=== PATIENT | male | born 1995 | race Two or more races ===

== ENCOUNTER 2019-01-20 12:21 | Emergency (ER) | payer MEDICAID ==
[~2019-01-20] VITALS: Ht 165.1 cm; Wt 58.5 kg
[2019-01-20 12:26] VITALS: BP 125/72
== END 2019-01-20 13:41 | disposition home or self-care (01) ==
LOC: ER 12:21
DX: S62.002A Unspecified fracture of navicular [scaphoid] bone of left wrist, initial encounter for closed fracture (principal); S00.83XA Contusion of other part of head, initial encounter; F12.90 Cannabis use, unspecified, uncomplicated; W14.XXXA Fall from tree, initial encounter; Y93.89 Activity, other specified; Y99.8 Other external cause status; Y92.89 Other specified places as the place of occurrence of the external cause
CPT/HCPCS: 29125; 73130

== ENCOUNTER 2020-05-22 11:58 | Inpatient (IN) | payer MEDICAID ==
[~2020-05-22] VITALS: Ht 165.1 cm; Wt 62.8 kg
[2020-05-22] MEDS ORDERED: ACETAMINOPHEN 325 MG TAB PO ONE (12:30)
[2020-05-22 16:00] LABS: Eosinophils # (auto) 0 10 ^3/uL (0-0.8); Hemoglobin 15.8 g/dL (13.5-17.5)
[2020-05-22] MEDS ORDERED: SODIUM CHLORIDE 0.9% 1,000 ML IVB ONE (16:00)
[2020-05-22] MEDS ORDERED: AZITHROMYCIN 500MG/ 250ML 250 ML IV ONE (16:00)
[2020-05-22 16:02] LABS: Basophils # (auto) 0.1 10 ^3/uL (0-0.2); Basophils % (auto) 0.2 % (0.0-2.0); Hematocrit 46.8 % (41.0-53.0); Lymphocytes # (auto) 1.1 10 ^3/uL (0.4-5.4); Lymphocytes % (auto) 4.7 % (10.0-50.0); Mean Corpuscular Hemoglobin 27.6 pg (28.0-32.0); Mean Corpuscular Hgb Conc. 33.9 g/dL (32.0-36.0); Mean Corpuscular Volume 81.5 fL (80.0-100.0); Monocytes # (auto) 1.7 10 ^3/uL (0-1.3); Monocytes % (auto) 7.6 % (0.0-12.0); Neutrophils % (auto) 87.5 % (37.0-80.0); Platelet Count (auto) 512 10^3/uL (140-450); Red Blood Cells 5.74 10^6/uL (4.5-5.90); Red Cell Distribution Width 12.6 % (11.8-14.3); White Blood Cell 22.8 10^3/uL (4.4-10.8)
[2020-05-22 16:16] LABS: Albumin 3.3 g/dL (3.4-5.0); BUN/Creatinine Ratio 9.6; Calcium 9.5 mg/dL (8.5-10.1); Potassium 3.4 mmol/L (3.5-5.1)
[2020-05-22 16:19] LABS: Bilirubin, Total 1.2 mg/dL (0.2-1.0); Total Protein 8.6 g/dL (6.4-8.2)
[2020-05-22 16:24] LABS: Lactic Acid w/Reflex 2.1 mmol/L (0.4-2.0)
[2020-05-22] MEDS ORDERED: NITROGLYCERIN 0.4 MG SL TAB SL PRN ×2 (16:45→18:45)
[2020-05-22] MEDS ORDERED: MORPHINE SULF INJ 2 MG/ML SYRINGE 1ML IV PRN ×2 (16:45→18:45)
[2020-05-22 16:56] LABS: INR 1.21 (0.9-1.15); Partial Thromboplastin Time 31.7 sec (23.0-31.2)
[2020-05-22] MEDS ORDERED: DOCUSATE SOD 100 MG CAP PO PRN (18:45)
[2020-05-22] MEDS ORDERED: LACTATED RINGER'S 2,000 ML IV ONE (18:45)
[2020-05-22] MEDS ORDERED: ALUM & MAG HYDROX-SIMETH LIQ(MAALOX) 30 ML PO PRN (18:45)
[2020-05-22] MEDS ORDERED: cefTRIAXone 1GM/50ML D5W 50 ML IV ONE ×2 (18:45→21:00)
[2020-05-22] MEDS: SODIUM CHLORIDE 0.9% 1,000 ML IV SCH (18:45)
[2020-05-22] MEDS ORDERED: THIAMINE 100mg/ml INJ (200mg/2ml VIAL) IV ONE (18:45)
[2020-05-22] MEDS ORDERED: CLINDAMYCIN 600MG IV 50 ML IV ONE (20:00)
[2020-05-22] MEDS ORDERED: POTASSIUM CHL 20 Meq TABLET PO SCH (22:00)
[2020-05-22 23:15] VITALS: BP 120/65
[2020-05-23] MEDS: ACETAMINOPHEN 325 MG TAB PO PRN ×3 (00:55→21:13)
[2020-05-23] MEDS: SODIUM CHLORIDE 0.9% 1,000 ML IV SCH ×2 (03:10→13:38)
[2020-05-23 05:00] VITALS: BP 127/67
[2020-05-23] MEDS: CLINDAMYCIN 600MG IV 50 ML IV SCH ×2 (05:52→13:38)
[2020-05-23 08:38] LABS: Urine Bacteria NONE SEEN /hpf (None Seen); Urine Blood TRACE /uL (Negative); Urine Mucus FEW (None Seen); Urine Specific Gravity 1.019 (1.001-1.035); Urine WBC 5 /hpf (0 - 3)
[2020-05-23 08:56] LABS: Alcohol, Urine < 3.0 mg/dL (0-10); Amphetamine Screen, Urine NEGATIVE (NEGATIVE); Benzodiazephine Screen, Urine NEGATIVE (NEGATIVE); Cannabinoid Screen, Urine POSITIVE (NEGATIVE)
[2020-05-23 09:00] VITALS: BP 123/68
[2020-05-23 09:03] LABS: Barbiturate Scree,Urine NEGATIVE (NEGATIVE); Cocaine Screen, Urine NEGATIVE (NEGATIVE); Opiate Scree,Urine NEGATIVE (NEGATIVE); Phencyclidine Screen, Urine NEGATIVE (NEGATIVE)
[2020-05-23] MEDS: POTASSIUM CHL 20 Meq TABLET PO SCH (10:00)
[2020-05-23] MEDS ORDERED: LIDOCAINE 2%HCL (LOCAL ANESTH.) INJ 20ML MDV ONE ×2 (10:30→12:01)
[2020-05-23] MEDS ORDERED: fentaNYL CITRATE 100 MCG/2 ML VL ONE ×2 (11:09→12:03)
[2020-05-23] MEDS ORDERED: MIDAZOLAM HCL 1MG/1ML-2 ML VIAL ONE (11:09)
[2020-05-23 13:00] VITALS: BP 122/66
[2020-05-23] MEDS: MORPHINE SULF INJ 2 MG/ML SYRINGE 1ML IV PRN ×2 (13:55→20:04)
[2020-05-23 16:49] VITALS: BP 126/71
[2020-05-23] MEDS ORDERED: VANCOMYCIN PER PHARMACY 0 MG IV SCH (18:00)
[2020-05-23] MEDS ORDERED: VANCOMYCIN 1GM/250ML 250 ML IV SCH (19:00)
[2020-05-23] MEDS: VANCOMYCIN 1GM/250ML 250 ML IV SCH (20:03)
[2020-05-23] MEDS ORDERED: CEFTRIAXONE SODIUM 2 GM in D5W 5% 50 ML IV SCH (21:00)
[2020-05-23] MEDS: THIAMINE 100mg/ml INJ (200mg/2ml VIAL) IV SCH (21:32)
[2020-05-23] MEDS: PIPERACILLIN-TAZOB 3.375GM 100 ML IV SCH (21:33)
[2020-05-23 22:33] VITALS: BP 117/70
[2020-05-24] MEDS: MORPHINE SULF INJ 2 MG/ML SYRINGE 1ML IV PRN ×3 (04:39→21:29)
[2020-05-24] MEDS: ACETAMINOPHEN 325 MG TAB PO PRN ×2 (05:10→17:23)
[2020-05-24 05:24] VITALS: BP 119/68
[2020-05-24 05:49] LABS: Basophils # (auto) 0.1 10 ^3/uL (0-0.2); Basophils % (auto) 0.5 % (0.0-2.0); Eosinophils # (auto) 0.3 10 ^3/uL (0-0.8); Eosinophils % (auto) 1.9 % (0.0-7.0); Hematocrit 34.4 % (41.0-53.0); Hemoglobin 11.4 g/dL (13.5-17.5); Lymphocytes # (auto) 1.2 10 ^3/uL (0.4-5.4); Lymphocytes % (auto) 7.8 % (10.0-50.0); Mean Corpuscular Hemoglobin 27.1 pg (28.0-32.0); Mean Corpuscular Hgb Conc. 33.3 g/dL (32.0-36.0); Mean Corpuscular Volume 81.5 fL (80.0-100.0); Monocytes # (auto) 1.4 10 ^3/uL (0-1.3); Neutrophils # (auto) 12.5 10 ^3/uL (1.6-8.6); Neutrophils % (auto) 80.8 % (37.0-80.0); Platelet Count (auto) 373 10^3/uL (140-450); Red Blood Cells 4.22 10^6/uL (4.5-5.90); White Blood Cell 15.4 10^3/uL (4.4-10.8)
[2020-05-24] MEDS: SODIUM CHLORIDE 0.9% 1,000 ML IV SCH ×2 (06:00→10:45)
[2020-05-24] MEDS: PIPERACILLIN-TAZOB 3.375GM 100 ML IV SCH ×3 (06:00→21:29)
[2020-05-24 06:12] LABS: Potassium 3.3 mmol/L (3.5-5.1)
[2020-05-24 06:18] LABS: Albumin 2.1 g/dL (3.4-5.0); BUN/Creatinine Ratio 10.8; Bilirubin, Total 0.4 mg/dL (0.2-1.0); Calcium 8.4 mg/dL (8.5-10.1); Total Protein 6.2 g/dL (6.4-8.2)
[2020-05-24] MEDS: VANCOMYCIN 1GM/250ML 250 ML IV SCH ×2 (08:00→20:05)
[2020-05-24 09:00] VITALS: BP 129/72
[2020-05-24] MEDS: POTASSIUM CHL 20 Meq TABLET PO SCH (10:07)
[2020-05-24] MEDS ORDERED: POTASSIUM CHL 20 Meq TABLET PO ONE (12:15)
[2020-05-24 13:00] VITALS: BP 137/80
[2020-05-24 17:00] VITALS: BP 124/72
[2020-05-24] MEDS: THIAMINE 100mg/ml INJ (200mg/2ml VIAL) IV SCH (21:29)
[2020-05-24 22:00] VITALS: BP 117/78
[2020-05-24] MEDS: HYDROcodone-ACET 5/325MG TAB PO PRN (23:11)
[2020-05-25 05:00] VITALS: BP 123/75
[2020-05-25] MEDS: SODIUM CHLORIDE 0.9% 1,000 ML IV SCH ×3 (05:13→16:45)
[2020-05-25] MEDS: MORPHINE SULF INJ 2 MG/ML SYRINGE 1ML IV PRN ×2 (05:14→23:27)
[2020-05-25] MEDS: PIPERACILLIN-TAZOB 3.375GM 100 ML IV SCH ×3 (05:29→22:00)
[2020-05-25 07:08] LABS: Basophils # (auto) 0 10 ^3/uL (0-0.2); Basophils % (auto) 0.2 % (0.0-2.0); Eosinophils # (auto) 0.3 10 ^3/uL (0-0.8); Eosinophils % (auto) 2.5 % (0.0-7.0); Hemoglobin 12.1 g/dL (13.5-17.5); Lymphocytes # (auto) 1.4 10 ^3/uL (0.4-5.4); Lymphocytes % (auto) 10.6 % (10.0-50.0); Mean Corpuscular Hemoglobin 27.5 pg (28.0-32.0); Mean Corpuscular Hgb Conc. 33.5 g/dL (32.0-36.0); Mean Corpuscular Volume 82.2 fL (80.0-100.0); Monocytes # (auto) 1.4 10 ^3/uL (0-1.3); Monocytes % (auto) 10.7 % (0.0-12.0); Neutrophils # (auto) 10.2 10 ^3/uL (1.6-8.6); Platelet Count (auto) 427 10^3/uL (140-450); Red Blood Cells 4.38 10^6/uL (4.5-5.90); Red Cell Distribution Width 13.2 % (11.8-14.3); White Blood Cell 13.4 10^3/uL (4.4-10.8)
[2020-05-25 07:21] LABS: BUN/Creatinine Ratio 8.8; Calcium 8.4 mg/dL (8.5-10.1); Potassium 3.6 mmol/L (3.5-5.1)
[2020-05-25 07:24] LABS: Bilirubin, Total 0.3 mg/dL (0.2-1.0); Total Protein 6.4 g/dL (6.4-8.2)
[2020-05-25 08:00] VITALS: BP 134/82
[2020-05-25] MEDS: VANCOMYCIN 1GM/250ML 250 ML IV SCH ×2 (08:25→17:00)
[2020-05-25] MEDS: POTASSIUM CHL 20 Meq TABLET PO SCH (10:24)
[2020-05-25] MEDS: HYDROcodone-ACET 5/325MG TAB PO PRN (11:23)
[2020-05-25 13:00] VITALS: BP 134/70
[2020-05-25 17:09] VITALS: BP 121/71
[2020-05-25] MEDS: ACETAMINOPHEN 325 MG TAB PO PRN (19:34)
[2020-05-25] MEDS: THIAMINE 100mg/ml INJ (200mg/2ml VIAL) IV SCH (21:20)
[2020-05-25 22:00] VITALS: BP 128/65
[2020-05-26] MEDS: VANCOMYCIN 1GM/250ML 250 ML IV SCH ×4 (01:00→16:41)
[2020-05-26] MEDS: SODIUM CHLORIDE 0.9% 1,000 ML IV SCH ×2 (02:45→22:45)
[2020-05-26] MEDS: ACETAMINOPHEN 325 MG TAB PO PRN ×3 (04:24→21:11)
[2020-05-26 05:00] VITALS: BP 127/67
[2020-05-26 05:46] LABS: Basophils # (auto) 0.1 10 ^3/uL (0-0.2); Basophils % (auto) 0.5 % (0.0-2.0); Eosinophils # (auto) 0.3 10 ^3/uL (0-0.8); Monocytes # (auto) 1.8 10 ^3/uL (0-1.3); Monocytes % (auto) 13.4 % (0.0-12.0); White Blood Cell 13.3 10^3/uL (4.4-10.8)
[2020-05-26 05:48] LABS: Eosinophils % (auto) 1.9 % (0.0-7.0); Hematocrit 37.6 % (41.0-53.0); Hemoglobin 12.5 g/dL (13.5-17.5); Lymphocytes # (auto) 1.9 10 ^3/uL (0.4-5.4); Lymphocytes % (auto) 14.2 % (10.0-50.0); Mean Corpuscular Hemoglobin 27.2 pg (28.0-32.0); Mean Corpuscular Hgb Conc. 33.2 g/dL (32.0-36.0); Neutrophils # (auto) 9.3 10 ^3/uL (1.6-8.6); Platelet Count (auto) 518 10^3/uL (140-450); Red Blood Cells 4.59 10^6/uL (4.5-5.90); Red Cell Distribution Width 13.3 % (11.8-14.3)
[2020-05-26] MEDS: PIPERACILLIN-TAZOB 3.375GM 100 ML IV SCH ×3 (06:00→22:00)
[2020-05-26 08:30] VITALS: BP 129/68
[2020-05-26] MEDS: POTASSIUM CHL 20 Meq TABLET PO SCH (11:04)
[2020-05-26] MEDS: ONDANSETRON HCL 4 MG/2 ML VIAL IV PRN (11:37)
[2020-05-26] MEDS: MORPHINE SULF INJ 2 MG/ML SYRINGE 1ML IV PRN ×2 (11:37→21:11)
[2020-05-26 13:05] VITALS: BP 136/71
[2020-05-26 17:00] VITALS: BP 118/64
[2020-05-26] MEDS: THIAMINE 100mg/ml INJ (200mg/2ml VIAL) IV SCH (20:54)
[2020-05-26 21:00] VITALS: BP 128/62
[2020-05-27] MEDS: VANCOMYCIN 1GM/250ML 250 ML IV SCH ×4 (01:00→20:50)
[2020-05-27] MEDS: MORPHINE SULF INJ 2 MG/ML SYRINGE 1ML IV PRN ×4 (01:05→23:41)
[2020-05-27 05:00] VITALS: BP 116/66
[2020-05-27] MEDS: PIPERACILLIN-TAZOB 3.375GM 100 ML IV SCH ×3 (05:54→22:24)
[2020-05-27 06:12] LABS: Basophils # (auto) 0.1 10 ^3/uL (0-0.2); Basophils % (auto) 0.7 % (0.0-2.0); Eosinophils # (auto) 0.3 10 ^3/uL (0-0.8); Eosinophils % (auto) 1.9 % (0.0-7.0); Neutrophils # (auto) 12.3 10 ^3/uL (1.6-8.6)
[2020-05-27 06:14] LABS: Hematocrit 38.3 % (41.0-53.0); Hemoglobin 12.8 g/dL (13.5-17.5); Lymphocytes # (auto) 2.1 10 ^3/uL (0.4-5.4); Lymphocytes % (auto) 12.4 % (10.0-50.0); Mean Corpuscular Hemoglobin 27.4 pg (28.0-32.0); Mean Corpuscular Hgb Conc. 33.4 g/dL (32.0-36.0); Monocytes # (auto) 2.1 10 ^3/uL (0-1.3); Monocytes % (auto) 12.5 % (0.0-12.0); Neutrophils % (auto) 72.5 % (37.0-80.0); Nucleated Red Blood Cells % 0.1 %; Platelet Count (auto) 582 10^3/uL (140-450); Red Blood Cells 4.67 10^6/uL (4.5-5.90); Red Cell Distribution Width 13.4 % (11.8-14.3); White Blood Cell 16.9 10^3/uL (4.4-10.8)
[2020-05-27 06:47] LABS: Albumin 2.2 g/dL (3.4-5.0); Bilirubin, Total 0.4 mg/dL (0.2-1.0); Calcium 8.7 mg/dL (8.5-10.1)
[2020-05-27 08:00] VITALS: BP 125/61
[2020-05-27] MEDS: SODIUM CHLORIDE 0.9% 1,000 ML IV SCH ×2 (08:45→17:42)
[2020-05-27 09:00] VITALS: BP 125/61
[2020-05-27] MEDS: POTASSIUM CHL 20 Meq TABLET PO SCH (09:25)
[2020-05-27] MEDS: ONDANSETRON HCL 4 MG/2 ML VIAL IV PRN (09:25)
[2020-05-27] MEDS ORDERED: CLINDAMYCIN 300MG IV 50 ML IV ONE ×2 (10:00)
[2020-05-27 10:14] LABS: INR 1.24 (0.9-1.15)
[2020-05-27 13:00] VITALS: BP 124/75
[2020-05-27] MEDS ORDERED: CLINDAMYCIN 300MG IV 50 ML IV SCH (14:00)
[2020-05-27] MEDS: ACETAMINOPHEN 325 MG TAB PO PRN (16:26)
[2020-05-27 17:00] VITALS: BP 121/63
[2020-05-27] MEDS: THIAMINE 100mg/ml INJ (200mg/2ml VIAL) IV SCH (21:00)
[2020-05-27 22:00] VITALS: BP 130/74
[2020-05-28] MEDS: VANCOMYCIN 1GM/250ML 250 ML IV SCH ×3 (02:07→20:46)
[2020-05-28] MEDS: CLINDAMYCIN 300MG IV 50 ML IV SCH ×3 (05:14→20:51)
[2020-05-28] MEDS: SODIUM CHLORIDE 0.9% 1,000 ML IV SCH ×2 (05:14→14:24)
[2020-05-28 05:37] VITALS: BP 123/82
[2020-05-28] MEDS: PIPERACILLIN-TAZOB 3.375GM 100 ML IV SCH ×3 (06:00→22:00)
[2020-05-28 06:44] LABS: Potassium 3.6 mmol/L (3.5-5.1)
[2020-05-28 06:52] LABS: Albumin 2.1 g/dL (3.4-5.0); BUN/Creatinine Ratio 8.4; Bilirubin, Total 0.4 mg/dL (0.2-1.0); Calcium 8.8 mg/dL (8.5-10.1)
[2020-05-28 06:54] LABS: Basophils # (auto) 0.1 10 ^3/uL (0-0.2); Basophils % (auto) 0.5 % (0.0-2.0); Eosinophils # (auto) 0.3 10 ^3/uL (0-0.8); Hemoglobin 12.1 g/dL (13.5-17.5); Mean Corpuscular Hemoglobin 27.8 pg (28.0-32.0); Monocytes # (auto) 1.8 10 ^3/uL (0-1.3); Red Blood Cells 4.36 10^6/uL (4.5-5.90)
[2020-05-28 06:56] LABS: Eosinophils % (auto) 1.7 % (0.0-7.0); Hematocrit 35.7 % (41.0-53.0); Lymphocytes # (auto) 1.7 10 ^3/uL (0.4-5.4); Lymphocytes % (auto) 9.9 % (10.0-50.0); Mean Corpuscular Volume 81.8 fL (80.0-100.0); Monocytes % (auto) 10.7 % (0.0-12.0); Neutrophils % (auto) 77.2 % (37.0-80.0); Platelet Count (auto) 625 10^3/uL (140-450); Red Cell Distribution Width 13.4 % (11.8-14.3); White Blood Cell 16.8 10^3/uL (4.4-10.8)
[2020-05-28 08:00] VITALS: BP 121/71
[2020-05-28 08:23] LABS: Urine Bacteria NONE SEEN /hpf (None Seen); Urine Blood Negative /uL (Negative); Urine Specific Gravity 1.009 (1.001-1.035); Urine WBC 2 /hpf (0 - 3)
[2020-05-28 09:00] VITALS: BP 121/71
[2020-05-28] MEDS: ONDANSETRON HCL 4 MG/2 ML VIAL IV PRN (10:35)
[2020-05-28] MEDS: MORPHINE SULF INJ 2 MG/ML SYRINGE 1ML IV PRN (10:48)
[2020-05-28 13:00] VITALS: BP 119/65
[2020-05-28 17:19] VITALS: BP 122/74
[2020-05-28] MEDS: Ensure HIGH Protein Chocolate 8oz Bottle PO SCH (18:27)
[2020-05-28] MEDS: THIAMINE 100mg/ml INJ (200mg/2ml VIAL) IV SCH (20:50)
[2020-05-28] MEDS: HYDROcodone-ACET 5/325MG TAB PO PRN (21:04)
[2020-05-28 22:00] VITALS: BP 122/65
[2020-05-29] MEDS: SODIUM CHLORIDE 0.9% 1,000 ML IV SCH ×3 (00:45→22:19)
[2020-05-29] MEDS: VANCOMYCIN 1GM/250ML 250 ML IV SCH ×3 (04:00→20:39)
[2020-05-29 05:00] VITALS: BP 124/62
[2020-05-29] MEDS: CLINDAMYCIN 300MG IV 50 ML IV SCH ×3 (05:07→22:20)
[2020-05-29] MEDS: PIPERACILLIN-TAZOB 3.375GM 100 ML IV SCH ×3 (06:00→22:20)
[2020-05-29 06:02] LABS: Basophils # (auto) 0.1 10 ^3/uL (0-0.2); Hemoglobin 11.9 g/dL (13.5-17.5); Monocytes # (auto) 1.3 10 ^3/uL (0-1.3); Monocytes % (auto) 8.8 % (0.0-12.0)
[2020-05-29 06:06] LABS: Eosinophils # (auto) 0.5 10 ^3/uL (0-0.8); Eosinophils % (auto) 3.4 % (0.0-7.0); Hematocrit 35.4 % (41.0-53.0); Lymphocytes # (auto) 2.2 10 ^3/uL (0.4-5.4); Lymphocytes % (auto) 15.4 % (10.0-50.0); Mean Corpuscular Hemoglobin 27.4 pg (28.0-32.0); Mean Corpuscular Hgb Conc. 33.5 g/dL (32.0-36.0); Mean Corpuscular Volume 81.7 fL (80.0-100.0); Neutrophils # (auto) 10.1 10 ^3/uL (1.6-8.6); Neutrophils % (auto) 71.4 % (37.0-80.0); Platelet Count (auto) 716 10^3/uL (140-450); Red Blood Cells 4.34 10^6/uL (4.5-5.90); Red Cell Distribution Width 13.4 % (11.8-14.3); White Blood Cell 14.2 10^3/uL (4.4-10.8)
[2020-05-29 06:15] LABS: Calcium 8.7 mg/dL (8.5-10.1); Potassium 3.5 mmol/L (3.5-5.1)
[2020-05-29 06:20] LABS: Bilirubin, Total 0.3 mg/dL (0.2-1.0); Total Protein 6.6 g/dL (6.4-8.2)
[2020-05-29] MEDS ORDERED: BENZOCAINE (DENTAL) 20 % SPRAY 60ML MT ONE (07:46)
[2020-05-29] MEDS ORDERED: EPINEPHrine HCL 1 MG/1 ML AMP ONE (07:46)
[2020-05-29] MEDS ORDERED: GLYCOPYRROLATE 0.2 MG/ML 1ML VIAL ONE (07:46)
[2020-05-29] MEDS ORDERED: SODIUM CHLORIDE LOCK 10 ML ONE (07:46)
[2020-05-29] MEDS ORDERED: LIDOCAINE 2%HCL (LOCAL ANESTH.) INJ 20ML MDV ONE (07:46)
[2020-05-29] MEDS ORDERED: diphenhdrAMINE HCL 50 MG/1 ML VL ONE (07:47)
[2020-05-29] MEDS ORDERED: LIDOCAINE HCL 2% TOP JELLY 5ML TOP ONE (07:47)
[2020-05-29] MEDS: Ensure HIGH Protein Chocolate 8oz Bottle PO SCH ×3 (08:00→18:00)
[2020-05-29 09:00] VITALS: BP 120/64
[2020-05-29] MEDS ORDERED: ACETYLCYSTEINE 20%(200MG/ML) SOL 4ML NEB SCH (09:00)
[2020-05-29] MEDS: MIDAZOLAM HCL 5 MG/ML-1ML VIAL ONE ×3 (10:33→10:39)
[2020-05-29] MEDS: fentaNYL CITRATE 100 MCG/2 ML VL ONE ×4 (10:33→10:41)
[2020-05-29 13:00] VITALS: BP 121/60
[2020-05-29 17:00] VITALS: BP 123/71
[2020-05-29 22:00] VITALS: BP 138/80
[2020-05-29] MEDS: THIAMINE 100mg/ml INJ (200mg/2ml VIAL) IV SCH (22:19)
[2020-05-29] MEDS: MORPHINE SULF INJ 2 MG/ML SYRINGE 1ML IV PRN (22:35)
[2020-05-30] MEDS: CLINDAMYCIN 300MG IV 50 ML IV SCH ×3 (04:45→20:53)
[2020-05-30 05:00] VITALS: BP 129/69
[2020-05-30] MEDS: PIPERACILLIN-TAZOB 3.375GM 100 ML IV SCH ×3 (06:02→22:18)
[2020-05-30] MEDS: SODIUM CHLORIDE 0.9% 1,000 ML IV SCH ×2 (06:03→16:45)
[2020-05-30] MEDS: MORPHINE SULF INJ 2 MG/ML SYRINGE 1ML IV PRN ×3 (06:03→20:12)
[2020-05-30 07:06] LABS: Basophils # (auto) 0.1 10 ^3/uL (0-0.2); Monocytes # (auto) 1.8 10 ^3/uL (0-1.3); Monocytes % (auto) 10.3 % (0.0-12.0)
[2020-05-30 07:09] LABS: Basophils % (auto) 0.7 % (0.0-2.0); Eosinophils # (auto) 0.5 10 ^3/uL (0-0.8); Eosinophils % (auto) 2.6 % (0.0-7.0); Hemoglobin 11.9 g/dL (13.5-17.5); Lymphocytes # (auto) 2.3 10 ^3/uL (0.4-5.4); Lymphocytes % (auto) 13.3 % (10.0-50.0); Mean Corpuscular Hemoglobin 27.7 pg (28.0-32.0); Mean Corpuscular Hgb Conc. 34.1 g/dL (32.0-36.0); Mean Corpuscular Volume 81.1 fL (80.0-100.0); Neutrophils # (auto) 12.7 10 ^3/uL (1.6-8.6); Neutrophils % (auto) 73.1 % (37.0-80.0); Nucleated Red Blood Cells % 0.1 %; Red Blood Cells 4.32 10^6/uL (4.5-5.90); Red Cell Distribution Width 13.2 % (11.8-14.3); White Blood Cell 17.4 10^3/uL (4.4-10.8)
[2020-05-30 07:30] LABS: Potassium 3.7 mmol/L (3.5-5.1)
[2020-05-30 07:34] LABS: Platelet Count (auto) 831 10^3/uL (140-450)
[2020-05-30 07:39] LABS: Albumin 2.1 g/dL (3.4-5.0); BUN/Creatinine Ratio 8.8; Bilirubin, Total 0.3 mg/dL (0.2-1.0); Calcium 8.7 mg/dL (8.5-10.1); Total Protein 6.9 g/dL (6.4-8.2)
[2020-05-30] MEDS: Ensure HIGH Protein Chocolate 8oz Bottle PO SCH ×3 (08:00→18:00)
[2020-05-30 09:14] VITALS: BP 125/71
[2020-05-30] MEDS ORDERED: VANCOMYCIN 1GM/250ML 250 ML IV ONE (10:30)
[2020-05-30 13:00] VITALS: BP 126/77
[2020-05-30 17:22] VITALS: BP 120/65
[2020-05-30] MEDS: VANCOMYCIN 1GM/250ML 250 ML IV SCH (20:12)
[2020-05-30] MEDS: THIAMINE 100mg/ml INJ (200mg/2ml VIAL) IV SCH (20:53)
[2020-05-30 22:00] VITALS: BP 113/74
[2020-05-31] MEDS: MORPHINE SULF INJ 2 MG/ML SYRINGE 1ML IV PRN ×4 (00:43→21:11)
[2020-05-31] MEDS: VANCOMYCIN 1GM/250ML 250 ML IV SCH ×3 (04:07→20:49)
[2020-05-31] MEDS: SODIUM CHLORIDE 0.9% 1,000 ML IV SCH ×3 (04:28→22:38)
[2020-05-31] MEDS: CLINDAMYCIN 300MG IV 50 ML IV SCH ×3 (04:57→20:50)
[2020-05-31 05:00] VITALS: BP 113/60
[2020-05-31 05:53] LABS: Basophils # (auto) 0.1 10 ^3/uL (0-0.2); Basophils % (auto) 0.6 % (0.0-2.0); Hemoglobin 11.2 g/dL (13.5-17.5); White Blood Cell 18.8 10^3/uL (4.4-10.8)
[2020-05-31 05:55] LABS: Eosinophils # (auto) 0.4 10 ^3/uL (0-0.8); Eosinophils % (auto) 2.2 % (0.0-7.0); Hematocrit 33.5 % (41.0-53.0); Lymphocytes # (auto) 2.6 10 ^3/uL (0.4-5.4); Lymphocytes % (auto) 14.1 % (10.0-50.0); Mean Corpuscular Hemoglobin 27.1 pg (28.0-32.0); Mean Corpuscular Hgb Conc. 33.4 g/dL (32.0-36.0); Mean Corpuscular Volume 81.2 fL (80.0-100.0); Monocytes # (auto) 1.5 10 ^3/uL (0-1.3); Monocytes % (auto) 8.2 % (0.0-12.0); Neutrophils # (auto) 14.1 10 ^3/uL (1.6-8.6); Neutrophils % (auto) 74.9 % (37.0-80.0); Red Blood Cells 4.13 10^6/uL (4.5-5.90); Red Cell Distribution Width 13.4 % (11.8-14.3)
[2020-05-31 06:06] LABS: INR 1.15 (0.9-1.15); Partial Thromboplastin Time 31.7 sec (23.0-31.2)
[2020-05-31 06:12] LABS: Potassium 3.7 mmol/L (3.5-5.1)
[2020-05-31] MEDS: PIPERACILLIN-TAZOB 3.375GM 100 ML IV SCH ×3 (06:13→22:00)
[2020-05-31 06:16] LABS: Albumin 1.9 g/dL (3.4-5.0); Calcium 8.8 mg/dL (8.5-10.1)
[2020-05-31 06:19] LABS: Bilirubin, Total 0.3 mg/dL (0.2-1.0); Total Protein 6.6 g/dL (6.4-8.2)
[2020-05-31 06:29] LABS: Platelet Count (auto) 778 10^3/uL (140-450)
[2020-05-31 08:00] VITALS: BP 108/65
[2020-05-31] MEDS: Ensure HIGH Protein Chocolate 8oz Bottle PO SCH ×3 (08:00→18:41)
[2020-05-31 08:58] VITALS: BP 108/65
[2020-05-31] MEDS ORDERED: LIDOCAINE HCL 2% TOP JELLY 5ML TOP ONE (09:51)
[2020-05-31] MEDS ORDERED: LIDOCAINE 2%HCL (LOCAL ANESTH.) INJ 20ML MDV ONE (09:51)
[2020-05-31] MEDS ORDERED: EPINEPHrine HCL 1 MG/1 ML AMP ONE (09:52)
[2020-05-31] MEDS ORDERED: LIDOCAINE HCL 2 % INJ 2ML MPF NEB ONE (10:00)
[2020-05-31] MEDS ORDERED: fentaNYL CITRATE 100 MCG/2 ML VL ONE (10:04)
[2020-05-31] MEDS ORDERED: MIDAZOLAM HCL 1MG/1ML-2 ML VIAL ONE (10:04)
[2020-05-31] MEDS ORDERED: MEPERIDINE HCL (25 MG/ML) 1ML VIAL ONE (10:04)
[2020-05-31] MEDS ORDERED: DexAMETHasone SOD PHOS 10MG/1ML VIAL INJ ONE (10:38)
[2020-05-31] MEDS ORDERED: PROPOFOL 10 MG/ML 20 ML IV ONE (10:39)
[2020-05-31 13:00] VITALS: BP 128/70
[2020-05-31] MEDS ORDERED: LIDOCAINE 1% (LOCAL ANESTH.) PF 5ml SDV ID ONE (17:00)
[2020-05-31] MEDS: HYDROcodone-ACET 5/325MG TAB PO PRN ×2 (17:22→22:50)
[2020-05-31 17:24] VITALS: BP 121/60
[2020-05-31] MEDS: THIAMINE 100mg/ml INJ (200mg/2ml VIAL) IV SCH (20:51)
[2020-05-31 22:00] VITALS: BP 110/55
[2020-05-31] MEDS: SODIUM CHLOR 0.9% PF (SALINE LOCK) 10ML VIAL/SYR IV SCH (22:29)
[2020-06-01] MEDS: MORPHINE SULF INJ 2 MG/ML SYRINGE 1ML IV PRN ×4 (01:20→23:42)
[2020-06-01 03:44] LABS: Hematocrit 35.2 % (41.0-53.0); Red Blood Cells 4.29 10^6/uL (4.5-5.90)
[2020-06-01 03:46] LABS: Hemoglobin 11.3 g/dL (13.5-17.5); Mean Corpuscular Hemoglobin 26.4 pg (28.0-32.0); Mean Corpuscular Hgb Conc. 32.2 g/dL (32.0-36.0); Red Cell Distribution Width 13.2 % (11.8-14.3); White Blood Cell 25.6 10^3/uL (4.4-10.8)
[2020-06-01] MEDS: HYDROcodone-ACET 5/325MG TAB PO PRN (03:58)
[2020-06-01] MEDS: VANCOMYCIN 1GM/250ML 250 ML IV SCH ×3 (03:58→17:06)
[2020-06-01 04:10] LABS: Calcium 8.1 mg/dL (8.5-10.1)
[2020-06-01 04:13] LABS: BUN/Creatinine Ratio 18.6; Bilirubin, Total 0.2 mg/dL (0.2-1.0); Total Protein 6.8 g/dL (6.4-8.2)
[2020-06-01 04:46] LABS: Platelet Count (auto) 867 10^3/uL (140-450)
[2020-06-01 04:47] LABS: Basophils % (manual) 0 (0.0-2.0); Blast Cells 0; Eosinophils % (manual) 0 (0-7); Metamyelocytes % 0; Myelocytes % 0; Promyelocytes % 0; Reactive Lymphocytes 0
[2020-06-01 05:00] VITALS: BP 107/57
[2020-06-01] MEDS: CLINDAMYCIN 300MG IV 50 ML IV SCH ×3 (05:55→21:18)
[2020-06-01] MEDS: PIPERACILLIN-TAZOB 3.375GM 100 ML IV SCH ×3 (06:14→22:00)
[2020-06-01 06:23] LABS: Band Neutrophils % (manual) 5; Lymphocytes % (manual) 2 (10.0-50.0); Monocytes % (manual) 6 (0-12)
[2020-06-01 07:39] VITALS: BP 108/65
[2020-06-01] MEDS: Ensure HIGH Protein Chocolate 8oz Bottle PO SCH ×3 (08:00→17:06)
[2020-06-01] MEDS: SODIUM CHLORIDE 0.9% 1,000 ML IV SCH ×2 (08:45→17:06)
[2020-06-01 09:00] VITALS: BP 112/61
[2020-06-01] MEDS: SODIUM CHLOR 0.9% PF (SALINE LOCK) 10ML VIAL/SYR IV SCH ×2 (09:46→21:19)
[2020-06-01 13:00] VITALS: BP 120/78
[2020-06-01 16:57] VITALS: BP 111/66
[2020-06-01] MEDS: THIAMINE 100mg/ml INJ (200mg/2ml VIAL) IV SCH (21:16)
[2020-06-01 22:00] VITALS: BP 108/65
[2020-06-02] MEDS: VANCOMYCIN 1GM/250ML 250 ML IV SCH ×4 (01:24→19:53)
[2020-06-02] MEDS: MORPHINE SULF INJ 2 MG/ML SYRINGE 1ML IV PRN ×4 (03:30→20:17)
[2020-06-02] MEDS: SODIUM CHLORIDE 0.9% 1,000 ML IV SCH ×2 (04:19→17:21)
[2020-06-02] MEDS: CLINDAMYCIN 300MG IV 50 ML IV SCH ×3 (04:56→21:01)
[2020-06-02 05:00] VITALS: BP 122/58
[2020-06-02] MEDS: PIPERACILLIN-TAZOB 3.375GM 100 ML IV SCH ×3 (06:17→23:03)
[2020-06-02 06:40] LABS: Lymphocytes # (auto) 2.5 10 ^3/uL (0.4-5.4); Monocytes # (auto) 1.3 10 ^3/uL (0-1.3)
[2020-06-02 06:42] LABS: Basophils # (auto) 0.1 10 ^3/uL (0-0.2); Basophils % (auto) 0.7 % (0.0-2.0); Eosinophils # (auto) 0.4 10 ^3/uL (0-0.8); Eosinophils % (auto) 2.6 % (0.0-7.0); Hematocrit 28.3 % (41.0-53.0); Hemoglobin 9.6 g/dL (13.5-17.5); Lymphocytes % (auto) 17.9 % (10.0-50.0); Mean Corpuscular Hemoglobin 28.1 pg (28.0-32.0); Mean Corpuscular Hgb Conc. 33.9 g/dL (32.0-36.0); Mean Corpuscular Volume 82.8 fL (80.0-100.0); Monocytes % (auto) 9.3 % (0.0-12.0); Neutrophils # (auto) 9.7 10 ^3/uL (1.6-8.6); Neutrophils % (auto) 69.5 % (37.0-80.0); Platelet Count (auto) 637 10^3/uL (140-450); Red Blood Cells 3.41 10^6/uL (4.5-5.90); Red Cell Distribution Width 13.8 % (11.8-14.3)
[2020-06-02 06:57] LABS: Albumin 1.7 g/dL (3.4-5.0); Calcium 7.1 mg/dL (8.5-10.1); Potassium 3.1 mmol/L (3.5-5.1)
[2020-06-02 07:01] LABS: BUN/Creatinine Ratio 12.7; Bilirubin, Total 0.1 mg/dL (0.2-1.0); Total Protein 5.3 g/dL (6.4-8.2)
[2020-06-02] MEDS: Ensure HIGH Protein Chocolate 8oz Bottle PO SCH ×3 (08:42→18:37)
[2020-06-02 09:00] VITALS: BP 123/64
[2020-06-02] MEDS: SODIUM CHLOR 0.9% PF (SALINE LOCK) 10ML VIAL/SYR IV SCH ×2 (10:00→21:48)
[2020-06-02 13:00] VITALS: BP 123/68
[2020-06-02 13:40] LABS: INR 1.13 (0.9-1.15)
[2020-06-02 17:00] VITALS: BP 111/60
[2020-06-02 20:00] VITALS: BP 111/70
[2020-06-02] MEDS: THIAMINE 100mg/ml INJ (200mg/2ml VIAL) IV SCH (21:01)
[2020-06-02 22:00] VITALS: BP 111/70
[2020-06-03] VITALS (8 sets, daily range): BP systolic 109–144; BP diastolic 64–89
[2020-06-03] MEDS: SODIUM CHLORIDE 0.9% 1,000 ML IV SCH ×3 (00:55→20:45)
[2020-06-03] MEDS: VANCOMYCIN 1GM/250ML 250 ML IV SCH ×4 (02:52→19:45)
[2020-06-03] MEDS: CLINDAMYCIN 300MG IV 50 ML IV SCH ×3 (05:05→20:53)
[2020-06-03] MEDS: PIPERACILLIN-TAZOB 3.375GM 100 ML IV SCH ×3 (06:59→22:37)
[2020-06-03] MEDS: Ensure HIGH Protein Chocolate 8oz Bottle PO SCH ×3 (08:00→17:54)
[2020-06-03] MEDS ORDERED: ceFAZolin 1GM/50ML 50 ML IV ONE (09:26)
[2020-06-03] MEDS ORDERED: POTASSIUM CHL 20MEQ/100ML 100 ML IV ONE ×2 (09:53→10:04)
[2020-06-03] MEDS ORDERED: fentaNYL CITRATE 100 MCG/2 ML VL ONE (09:57)
[2020-06-03] MEDS ORDERED: MIDAZOLAM HCL 1MG/1ML-2 ML VIAL ONE (09:57)
[2020-06-03] MEDS ORDERED: HYDROmorphone HCL 2 MG/ML VL ONE (09:57)
[2020-06-03] MEDS: SODIUM CHLOR 0.9% PF (SALINE LOCK) 10ML VIAL/SYR IV SCH ×2 (10:00→22:36)
[2020-06-03] MEDS ORDERED: POTASSIUM CHLORIDE 40 MEQ, LIDOCAINE 1% (LOCAL ANESTH.) 4 ML in SODIUM CHL 0.9% 100 ML IV ONE (10:00)
[2020-06-03] MEDS ORDERED: POVIDONE IODINE 10 % TOPICAL OINT 30GM TOP ONE (10:09)
[2020-06-03] MEDS ORDERED: NEOSTIGMINE 1 MG/ML INJ (10mg/10ML VIAL) IV ONE (10:15)
[2020-06-03] MEDS ORDERED: GLYCOPYRROLATE 0.2 MG/ML 1ML VIAL IV ONE (10:15)
[2020-06-03] MEDS ORDERED: DexAMETHasone SOD PHOS 10MG/1ML VIAL INJ ONE (10:42)
[2020-06-03] MEDS ORDERED: PROPOFOL 10 MG/ML 20 ML IV ONE (10:53)
[2020-06-03] MEDS ORDERED: ROCURONIUM 10MG/ML 10ML VIAL IV ONE (10:54)
[2020-06-03] MEDS: BUPIVACAINE 0.25% INJ 50ML VIAL ONE ×2 (11:10→12:15)
[2020-06-03] MEDS ORDERED: MORPHINE SULFATE 4 MG/ML SYR/VIAL IV PRN (12:00)
[2020-06-03] MEDS ORDERED: HYDROmorphone HCL 2 MG/ML VL IV PRN (12:00)
[2020-06-03] MEDS ORDERED: MIDAZOLAM HCL 1MG/1ML-2 ML VIAL IV PRN (12:00)
[2020-06-03] MEDS ORDERED: LABETALOL HCL 5 MG/ML 4ML SYRINGE IV PRN (12:00)
[2020-06-03] MEDS ORDERED: ePHEDrine SULFATE 50 MG/ML AMP IV PRN (12:00)
[2020-06-03] MEDS ORDERED: ONDANSETRON HCL 4 MG/2 ML VIAL IV PRN (12:00)
[2020-06-03] MEDS: D5W/SOD CHL 0.45%/KCL 40MEQ 1,000 ML IV SCH (14:29)
[2020-06-03] MEDS: HYDROmorphone HCL 2 MG/ML VL IV PRN ×3 (14:30→23:21)
[2020-06-03] MEDS: ONDANSETRON HCL 4 MG/2 ML VIAL IV PRN ×3 (14:30→23:21)
[2020-06-03 15:24] LABS: Potassium 3.3 mmol/L (3.5-5.1)
[2020-06-03] MEDS: THIAMINE 100mg/ml INJ (200mg/2ml VIAL) IV SCH (20:53)
[2020-06-04] VITALS (18 sets, daily range): BP systolic 112–145; BP diastolic 65–94
[2020-06-04] MEDS: LORazepam 0.5 MG TAB PO PRN ×3 (01:09→12:10)
[2020-06-04] MEDS: VANCOMYCIN 1GM/250ML 250 ML IV SCH ×4 (02:00→19:58)
[2020-06-04] MEDS: HYDROmorphone HCL 2 MG/ML VL IV PRN ×5 (03:11→22:17)
[2020-06-04 03:49] LABS: Lymphocytes # (auto) 1.3 10 ^3/uL (0.4-5.4); Lymphocytes % (auto) 5.4 % (10.0-50.0); Neutrophils # (auto) 20.2 10 ^3/uL (1.6-8.6)
[2020-06-04 03:51] LABS: Basophils # (auto) 0.1 10 ^3/uL (0-0.2); Basophils % (auto) 0.2 % (0.0-2.0); Eosinophils # (auto) 0.1 10 ^3/uL (0-0.8); Eosinophils % (auto) 0.3 % (0.0-7.0); Hematocrit 33.7 % (41.0-53.0); Hemoglobin 11.2 g/dL (13.5-17.5); Mean Corpuscular Hemoglobin 26.9 pg (28.0-32.0); Mean Corpuscular Hgb Conc. 33.2 g/dL (32.0-36.0); Monocytes # (auto) 1.8 10 ^3/uL (0-1.3); Monocytes % (auto) 7.8 % (0.0-12.0); Neutrophils % (auto) 86.3 % (37.0-80.0); Platelet Count (auto) 744 10^3/uL (140-450); Red Blood Cells 4.16 10^6/uL (4.5-5.90); Red Cell Distribution Width 13.7 % (11.8-14.3); White Blood Cell 23.4 10^3/uL (4.4-10.8)
[2020-06-04 04:04] LABS: Albumin 2.3 g/dL (3.4-5.0); Calcium 9.1 mg/dL (8.5-10.1); Potassium 3.7 mmol/L (3.5-5.1)
[2020-06-04 04:06] LABS: BUN/Creatinine Ratio 8.3
[2020-06-04 04:09] LABS: Bilirubin, Total 0.4 mg/dL (0.2-1.0)
[2020-06-04] MEDS: CLINDAMYCIN 300MG IV 50 ML IV SCH ×3 (05:01→20:54)
[2020-06-04] MEDS: D5W/SOD CHL 0.45%/KCL 40MEQ 1,000 ML IV SCH ×2 (05:10→15:56)
[2020-06-04] MEDS: SODIUM CHLORIDE 0.9% 1,000 ML IV SCH ×2 (06:05→16:45)
[2020-06-04] MEDS: PIPERACILLIN-TAZOB 3.375GM 100 ML IV SCH ×3 (06:31→22:18)
[2020-06-04] MEDS: Ensure HIGH Protein Chocolate 8oz Bottle PO SCH ×3 (08:32→18:12)
[2020-06-04] MEDS: SODIUM CHLOR 0.9% PF (SALINE LOCK) 10ML VIAL/SYR IV SCH ×2 (10:18→21:56)
[2020-06-04] MEDS: THIAMINE 100mg/ml INJ (200mg/2ml VIAL) IV SCH (20:54)
[2020-06-05] VITALS: BP 128/81
[2020-06-05] MEDS: VANCOMYCIN 1GM/250ML 250 ML IV SCH ×4 (02:01→20:12)
[2020-06-05] MEDS: SODIUM CHLORIDE 0.9% 1,000 ML IV SCH ×3 (02:02→22:45)
[2020-06-05] MEDS: HYDROmorphone HCL 2 MG/ML VL IV PRN ×3 (02:17→10:53)
[2020-06-05] MEDS: ONDANSETRON HCL 4 MG/2 ML VIAL IV PRN ×2 (02:18→08:57)
[2020-06-05] MEDS: D5W/SOD CHL 0.45%/KCL 40MEQ 1,000 ML IV SCH ×2 (04:46→17:50)
[2020-06-05] MEDS: CLINDAMYCIN 300MG IV 50 ML IV SCH ×3 (04:46→21:51)
[2020-06-05 05:22] LABS: Basophils # (auto) 0.1 10 ^3/uL (0-0.2); Eosinophils # (auto) 0.4 10 ^3/uL (0-0.8); Lymphocytes # (auto) 1.4 10 ^3/uL (0.4-5.4); Platelet Count (auto) 559 10^3/uL (140-450)
[2020-06-05 05:24] LABS: Eosinophils % (auto) 2.9 % (0.0-7.0); Hematocrit 32.7 % (41.0-53.0); Hemoglobin 10.5 g/dL (13.5-17.5); Mean Corpuscular Hemoglobin 26.5 pg (28.0-32.0); Mean Corpuscular Hgb Conc. 32.1 g/dL (32.0-36.0); Mean Corpuscular Volume 82.4 fL (80.0-100.0); Monocytes % (auto) 13.7 % (0.0-12.0); Neutrophils # (auto) 10.4 10 ^3/uL (1.6-8.6); Neutrophils % (auto) 72.4 % (37.0-80.0); Red Blood Cells 3.97 10^6/uL (4.5-5.90); Red Cell Distribution Width 13.7 % (11.8-14.3); White Blood Cell 14.4 10^3/uL (4.4-10.8)
[2020-06-05] MEDS: PIPERACILLIN-TAZOB 3.375GM 100 ML IV SCH ×3 (06:16→23:31)
[2020-06-05 07:06] LABS: Albumin 2.4 g/dL (3.4-5.0); Calcium 8.8 mg/dL (8.5-10.1); Potassium 3.8 mmol/L (3.5-5.1)
[2020-06-05 07:11] LABS: BUN/Creatinine Ratio 8.1; Bilirubin, Total 0.4 mg/dL (0.2-1.0); Total Protein 6.8 g/dL (6.4-8.2)
[2020-06-05 08:00] VITALS: BP 112/71
[2020-06-05] MEDS: SODIUM CHLOR 0.9% PF (SALINE LOCK) 10ML VIAL/SYR IV SCH ×2 (08:56→21:51)
[2020-06-05] MEDS: Ensure HIGH Protein Chocolate 8oz Bottle PO SCH ×3 (08:56→18:28)
[2020-06-05 12:00] VITALS: BP 125/80
[2020-06-05] MEDS ORDERED: ACETAMINOPHEN/CODEINE#3 (300/30mg) TAB PO PRN (12:30)
[2020-06-05] MEDS: MORPHINE SULF INJ 2 MG/ML SYRINGE 1ML IV PRN ×2 (15:10→19:59)
[2020-06-05 20:00] VITALS: BP 119/74
[2020-06-05] MEDS: KETOROLAC TROMETH 30 MG/ML 1ML VIAL IV PRN (21:09)
[2020-06-05] MEDS: THIAMINE 100mg/ml INJ (200mg/2ml VIAL) IV SCH (21:51)
[2020-06-05 23:00] VITALS: BP 130/68
[2020-06-06] MEDS ORDERED: KETOROLAC TROMETH 30 MG/ML 1ML VIAL IV ONE (00:15)
[2020-06-06] MEDS: MORPHINE SULF INJ 2 MG/ML SYRINGE 1ML IV PRN ×2 (01:17→05:30)
[2020-06-06] MEDS: VANCOMYCIN 1GM/250ML 250 ML IV SCH ×4 (02:27→19:46)
[2020-06-06] MEDS: CLINDAMYCIN 300MG IV 50 ML IV SCH (05:06)
[2020-06-06 05:09] VITALS: BP 137/71
[2020-06-06 05:47] LABS: Basophils # (auto) 0.2 10 ^3/uL (0-0.2); Basophils % (auto) 1.4 % (0.0-2.0); Eosinophils # (auto) 0.5 10 ^3/uL (0-0.8); Hemoglobin 10.5 g/dL (13.5-17.5)
[2020-06-06 05:50] LABS: Eosinophils % (auto) 4.5 % (0.0-7.0); Hematocrit 31.4 % (41.0-53.0); Lymphocytes # (auto) 1.5 10 ^3/uL (0.4-5.4); Lymphocytes % (auto) 12.7 % (10.0-50.0); Mean Corpuscular Hemoglobin 26.8 pg (28.0-32.0); Mean Corpuscular Hgb Conc. 33.3 g/dL (32.0-36.0); Mean Corpuscular Volume 80.5 fL (80.0-100.0); Monocytes # (auto) 1.5 10 ^3/uL (0-1.3); Monocytes % (auto) 12.4 % (0.0-12.0); Neutrophils # (auto) 8.2 10 ^3/uL (1.6-8.6); Platelet Count (auto) 432 10^3/uL (140-450); Red Cell Distribution Width 13.6 % (11.8-14.3); White Blood Cell 11.8 10^3/uL (4.4-10.8)
[2020-06-06] MEDS: KETOROLAC TROMETH 30 MG/ML 1ML VIAL IV PRN (06:14)
[2020-06-06 06:30] LABS: Calcium 8.9 mg/dL (8.5-10.1)
[2020-06-06] MEDS: PIPERACILLIN-TAZOB 3.375GM 100 ML IV SCH ×3 (06:49→22:22)
[2020-06-06 08:43] VITALS: BP 118/59
[2020-06-06] MEDS: Ensure HIGH Protein Chocolate 8oz Bottle PO SCH ×2 (08:55→12:53)
[2020-06-06] MEDS: HYDROmorphone HCL 2 MG/ML VL IV PRN ×2 (09:50→20:47)
[2020-06-06] MEDS: SODIUM CHLOR 0.9% PF (SALINE LOCK) 10ML VIAL/SYR IV SCH ×2 (09:52→22:22)
[2020-06-06] MEDS: ONDANSETRON HCL 4 MG/2 ML VIAL IV PRN ×2 (12:51→19:45)
[2020-06-06 13:10] VITALS: BP 109/66
[2020-06-06] MEDS: HYDROcodone-ACET 5/325MG TAB PO PRN (15:08)
[2020-06-06 16:38] VITALS: BP 133/74
[2020-06-06] MEDS ORDERED: ONDANSETRON HCL 4 MG/2 ML VIAL ONE (19:40)
[2020-06-06] MEDS: THIAMINE 100mg/ml INJ (200mg/2ml VIAL) IV SCH (20:46)
[2020-06-06 22:00] VITALS: BP 126/69
[2020-06-07] MEDS: HYDROcodone-ACET 5/325MG TAB PO PRN (01:57)
[2020-06-07] MEDS: VANCOMYCIN 1GM/250ML 250 ML IV SCH ×2 (01:58→08:00)
[2020-06-07] MEDS: HYDROmorphone HCL 2 MG/ML VL IV PRN ×4 (04:07→21:52)
[2020-06-07 05:00] VITALS: BP 126/75
[2020-06-07] MEDS: PIPERACILLIN-TAZOB 3.375GM 100 ML IV SCH ×3 (06:04→23:00)
[2020-06-07] MEDS: Ensure HIGH Protein Chocolate 8oz Bottle PO SCH ×4 (08:01→19:43)
[2020-06-07 08:03] LABS: Basophils # (auto) 0.1 10 ^3/uL (0-0.2); Eosinophils # (auto) 0.5 10 ^3/uL (0-0.8); Lymphocytes # (auto) 1.2 10 ^3/uL (0.4-5.4); Monocytes # (auto) 2.2 10 ^3/uL (0-1.3); White Blood Cell 13.9 10^3/uL (4.4-10.8)
[2020-06-07 08:05] LABS: Basophils % (auto) 0.6 % (0.0-2.0); Eosinophils % (auto) 3.5 % (0.0-7.0); Hematocrit 30.8 % (41.0-53.0); Hemoglobin 10.3 g/dL (13.5-17.5); Lymphocytes % (auto) 8.6 % (10.0-50.0); Mean Corpuscular Hgb Conc. 33.5 g/dL (32.0-36.0); Mean Corpuscular Volume 80.6 fL (80.0-100.0); Monocytes % (auto) 15.8 % (0.0-12.0); Neutrophils % (auto) 71.5 % (37.0-80.0); Platelet Count (auto) 360 10^3/uL (140-450); Red Blood Cells 3.83 10^6/uL (4.5-5.90); Red Cell Distribution Width 13.5 % (11.8-14.3)
[2020-06-07 08:21] LABS: Albumin 2.2 g/dL (3.4-5.0); Potassium 3.8 mmol/L (3.5-5.1)
[2020-06-07 08:28] LABS: BUN/Creatinine Ratio 6.4; Bilirubin, Total 0.4 mg/dL (0.2-1.0); Total Protein 6.6 g/dL (6.4-8.2)
[2020-06-07 09:00] VITALS: BP 115/67
[2020-06-07] MEDS: SODIUM CHLOR 0.9% PF (SALINE LOCK) 10ML VIAL/SYR IV SCH ×2 (09:19→21:52)
[2020-06-07] MEDS: ONDANSETRON HCL 4 MG/2 ML VIAL IV PRN ×2 (09:20→13:11)
[2020-06-07 13:00] VITALS: BP 122/69
[2020-06-07] MEDS: SODIUM CHLORIDE 0.9% 1,000 ML IV SCH ×2 (14:24→23:45)
[2020-06-07 16:46] VITALS: BP 135/78
[2020-06-07] MEDS: THIAMINE 100mg/ml INJ (200mg/2ml VIAL) IV SCH (21:52)
[2020-06-07 22:00] VITALS: BP 125/67
[2020-06-08] MEDS: HYDROmorphone HCL 2 MG/ML VL IV PRN ×4 (04:10→22:47)
[2020-06-08 05:00] VITALS: BP 127/70
[2020-06-08] MEDS: PIPERACILLIN-TAZOB 3.375GM 100 ML IV SCH ×2 (06:48→14:50)
[2020-06-08 08:38] VITALS: BP 124/69
[2020-06-08] MEDS: Ensure HIGH Protein Chocolate 8oz Bottle PO SCH ×3 (09:46→18:13)
[2020-06-08] MEDS: SODIUM CHLORIDE 0.9% 1,000 ML IV SCH ×2 (09:46→22:24)
[2020-06-08] MEDS: SODIUM CHLOR 0.9% PF (SALINE LOCK) 10ML VIAL/SYR IV SCH ×2 (09:47→22:24)
[2020-06-08 10:58] LABS: Basophils # (auto) 0.1 10 ^3/uL (0-0.2); Eosinophils # (auto) 0.2 10 ^3/uL (0-0.8); Neutrophils # (auto) 12.5 10 ^3/uL (1.6-8.6); White Blood Cell 16.5 10^3/uL (4.4-10.8)
[2020-06-08 11:00] LABS: Basophils % (auto) 0.9 % (0.0-2.0); Eosinophils % (auto) 1.5 % (0.0-7.0); Hematocrit 27.8 % (41.0-53.0); Hemoglobin 9.3 g/dL (13.5-17.5); Mean Corpuscular Hemoglobin 26.9 pg (28.0-32.0); Mean Corpuscular Hgb Conc. 33.5 g/dL (32.0-36.0); Mean Corpuscular Volume 80.3 fL (80.0-100.0); Monocytes # (auto) 2.6 10 ^3/uL (0-1.3); Monocytes % (auto) 15.6 % (0.0-12.0); Platelet Count (auto) 307 10^3/uL (140-450); Red Blood Cells 3.47 10^6/uL (4.5-5.90); Red Cell Distribution Width 13.8 % (11.8-14.3)
[2020-06-08 11:20] LABS: Albumin 1.9 g/dL (3.4-5.0); Calcium 8.1 mg/dL (8.5-10.1)
[2020-06-08 11:30] LABS: BUN/Creatinine Ratio 6.6; Bilirubin, Total 0.3 mg/dL (0.2-1.0); Total Protein 5.9 g/dL (6.4-8.2)
[2020-06-08 12:48] VITALS: BP 127/66
[2020-06-08 16:44] VITALS: BP 128/75
[2020-06-08] MEDS: THIAMINE 100mg/ml INJ (200mg/2ml VIAL) IV SCH (20:56)
[2020-06-08 22:00] VITALS: BP 132/77
[2020-06-08] MEDS: LINEZOLID 600 MG/300 ML IV BAG IV SCH (22:24)
[2020-06-08] MEDS: PIPERACILLIN-TAZOB 2.25GM 50 ML IV SCH (22:24)
[2020-06-08] MEDS: ACETAMINOPHEN 325 MG TAB PO PRN (22:25)
[2020-06-08] MEDS: ONDANSETRON HCL 4 MG/2 ML VIAL IV PRN (22:50)
[2020-06-09 05:00] VITALS: BP 117/67
[2020-06-09] MEDS: SODIUM CHLORIDE 0.9% 1,000 ML IV SCH ×2 (05:45→15:26)
[2020-06-09] MEDS: HYDROmorphone HCL 2 MG/ML VL IV PRN ×3 (06:07→18:29)
[2020-06-09] MEDS: PIPERACILLIN-TAZOB 2.25GM 50 ML IV SCH ×3 (06:07→22:20)
[2020-06-09] MEDS: ONDANSETRON HCL 4 MG/2 ML VIAL IV PRN ×3 (06:07→18:28)
[2020-06-09 08:52] LABS: Basophils # (auto) 0.1 10 ^3/uL (0-0.2); Hemoglobin 8.5 g/dL (13.5-17.5); Lymphocytes # (auto) 1.1 10 ^3/uL (0.4-5.4); Monocytes # (auto) 1.7 10 ^3/uL (0-1.3)
[2020-06-09 08:54] LABS: Basophils % (auto) 0.8 % (0.0-2.0); Eosinophils # (auto) 0.5 10 ^3/uL (0-0.8); Eosinophils % (auto) 3.9 % (0.0-7.0); Hematocrit 25.8 % (41.0-53.0); Lymphocytes % (auto) 8.6 % (10.0-50.0); Mean Corpuscular Hemoglobin 26.8 pg (28.0-32.0); Mean Corpuscular Hgb Conc. 33.2 g/dL (32.0-36.0); Mean Corpuscular Volume 80.8 fL (80.0-100.0); Monocytes % (auto) 13.6 % (0.0-12.0); Neutrophils # (auto) 8.9 10 ^3/uL (1.6-8.6); Neutrophils % (auto) 73.1 % (37.0-80.0); Platelet Count (auto) 271 10^3/uL (140-450); Red Blood Cells 3.19 10^6/uL (4.5-5.90); Red Cell Distribution Width 13.7 % (11.8-14.3); White Blood Cell 12.2 10^3/uL (4.4-10.8)
[2020-06-09 09:26] LABS: BUN/Creatinine Ratio 7.1; Calcium 7.8 mg/dL (8.5-10.1); Potassium 3.7 mmol/L (3.5-5.1)
[2020-06-09 09:43] VITALS: BP 112/65
[2020-06-09] MEDS ORDERED: SODIUM CHLORIDE 0.9% 1,000 ML IV ONE (10:00)
[2020-06-09] MEDS: Ensure HIGH Protein Chocolate 8oz Bottle PO SCH ×3 (10:08→18:05)
[2020-06-09] MEDS: SODIUM CHLOR 0.9% PF (SALINE LOCK) 10ML VIAL/SYR IV SCH ×3 (10:09→22:19)
[2020-06-09] MEDS: LINEZOLID 600 MG/300 ML IV BAG IV SCH ×2 (11:52→22:20)
[2020-06-09] MEDS ORDERED: LIDOCAINE 1% (LOCAL ANESTH.) PF 5ml SDV ID ONE (12:00)
[2020-06-09 12:50] VITALS: BP 131/68
[2020-06-09 16:38] VITALS: BP 132/67
[2020-06-09] MEDS: THIAMINE 100mg/ml INJ (200mg/2ml VIAL) IV SCH (22:00)
[2020-06-09 22:36] VITALS: BP 123/61
[2020-06-10] MEDS: ONDANSETRON HCL 4 MG/2 ML VIAL IV PRN ×4 (00:13→18:33)
[2020-06-10] MEDS: HYDROmorphone HCL 2 MG/ML VL IV PRN ×4 (00:15→18:33)
[2020-06-10] MEDS: SODIUM CHLORIDE 0.9% 1,000 ML IV SCH ×3 (03:11→22:48)
[2020-06-10 05:30] VITALS: BP 133/73
[2020-06-10] MEDS: PIPERACILLIN-TAZOB 2.25GM 50 ML IV SCH ×3 (06:15→22:47)
[2020-06-10 07:02] LABS: Eosinophils # (auto) 0.5 10 ^3/uL (0-0.8); Eosinophils % (auto) 4.4 % (0.0-7.0); Hemoglobin 9.1 g/dL (13.5-17.5)
[2020-06-10 07:03] LABS: Basophils # (auto) 0.2 10 ^3/uL (0-0.2); Basophils % (auto) 1.3 % (0.0-2.0); Hematocrit 27.6 % (41.0-53.0); Lymphocytes # (auto) 1.7 10 ^3/uL (0.4-5.4); Lymphocytes % (auto) 14.1 % (10.0-50.0); Mean Corpuscular Hemoglobin 26.6 pg (28.0-32.0); Mean Corpuscular Hgb Conc. 33.1 g/dL (32.0-36.0); Mean Corpuscular Volume 80.5 fL (80.0-100.0); Monocytes # (auto) 1.6 10 ^3/uL (0-1.3); Monocytes % (auto) 12.9 % (0.0-12.0); Neutrophils # (auto) 8.3 10 ^3/uL (1.6-8.6); Neutrophils % (auto) 67.3 % (37.0-80.0); Platelet Count (auto) 317 10^3/uL (140-450); Red Blood Cells 3.43 10^6/uL (4.5-5.90); Red Cell Distribution Width 13.6 % (11.8-14.3); White Blood Cell 12.3 10^3/uL (4.4-10.8)
[2020-06-10 07:14] LABS: Albumin 1.7 g/dL (3.4-5.0); BUN/Creatinine Ratio 6.4; Calcium 8.1 mg/dL (8.5-10.1); Potassium 3.8 mmol/L (3.5-5.1)
[2020-06-10 07:17] LABS: Bilirubin, Total 0.3 mg/dL (0.2-1.0); Total Protein 5.4 g/dL (6.4-8.2)
[2020-06-10] MEDS: Ensure HIGH Protein Chocolate 8oz Bottle PO SCH ×3 (08:00→18:00)
[2020-06-10 09:00] VITALS: BP 115/58
[2020-06-10] MEDS: SODIUM CHLOR 0.9% PF (SALINE LOCK) 10ML VIAL/SYR IV SCH ×2 (10:10→21:20)
[2020-06-10] MEDS: LINEZOLID 600MG/300ML 300 ML IV SCH ×2 (10:10→21:19)
[2020-06-10 13:00] VITALS: BP 147/84
[2020-06-10 16:33] LABS: Protein, Urine 7.4 mg/dL (0.0-11.9)
[2020-06-10 16:43] VITALS: BP 124/65
[2020-06-10 16:53] LABS: Urine Bacteria FEW /hpf (None Seen); Urine Blood Negative /uL (Negative); Urine Specific Gravity 1.004 (1.001-1.035); Urine WBC 2 /hpf (0 - 3)
[2020-06-10 22:00] VITALS: BP 127/72
[2020-06-11] MEDS: HYDROmorphone HCL 2 MG/ML VL IV PRN ×4 (00:40→18:39)
[2020-06-11] MEDS: ONDANSETRON HCL 4 MG/2 ML VIAL IV PRN ×4 (00:40→18:39)
[2020-06-11 05:00] VITALS: BP 130/75
[2020-06-11] MEDS: PIPERACILLIN-TAZOB 2.25GM 50 ML IV SCH ×3 (05:45→21:00)
[2020-06-11 07:10] LABS: Basophils % (auto) 1.4 % (0.0-2.0); Eosinophils # (auto) 0.6 10 ^3/uL (0-0.8); Mean Corpuscular Hemoglobin 26.4 pg (28.0-32.0); Neutrophils % (auto) 64.9 % (37.0-80.0)
[2020-06-11 07:13] LABS: Basophils # (auto) 0.1 10 ^3/uL (0-0.2); Eosinophils % (auto) 5.7 % (0.0-7.0); Hematocrit 26.9 % (41.0-53.0); Hemoglobin 8.8 g/dL (13.5-17.5); Lymphocytes # (auto) 1.8 10 ^3/uL (0.4-5.4); Lymphocytes % (auto) 16.8 % (10.0-50.0); Mean Corpuscular Hgb Conc. 32.8 g/dL (32.0-36.0); Mean Corpuscular Volume 80.5 fL (80.0-100.0); Monocytes # (auto) 1.2 10 ^3/uL (0-1.3); Monocytes % (auto) 11.2 % (0.0-12.0); Neutrophils # (auto) 6.9 10 ^3/uL (1.6-8.6); Platelet Count (auto) 362 10^3/uL (140-450); Red Blood Cells 3.33 10^6/uL (4.5-5.90); Red Cell Distribution Width 14.1 % (11.8-14.3); White Blood Cell 10.6 10^3/uL (4.4-10.8)
[2020-06-11 07:37] LABS: Potassium 3.7 mmol/L (3.5-5.1)
[2020-06-11 07:51] LABS: Calcium 8.4 mg/dL (8.5-10.1)
[2020-06-11] MEDS: Ensure HIGH Protein Chocolate 8oz Bottle PO SCH ×3 (08:00→18:00)
[2020-06-11 09:00] VITALS: BP 131/76
[2020-06-11] MEDS: LINEZOLID 600MG/300ML 300 ML IV SCH ×2 (09:15→22:26)
[2020-06-11] MEDS: SODIUM CHLOR 0.9% PF (SALINE LOCK) 10ML VIAL/SYR IV SCH ×2 (09:18→21:00)
[2020-06-11] MEDS: SODIUM CHLORIDE 0.9% 1,000 ML IV SCH (09:18)
[2020-06-11 12:51] VITALS: BP 129/78
[2020-06-11 17:00] VITALS: BP 130/74
[2020-06-11 22:05] VITALS: BP 133/69
[2020-06-12] MEDS: ONDANSETRON HCL 4 MG/2 ML VIAL IV PRN ×3 (00:44→12:36)
[2020-06-12] MEDS: HYDROmorphone HCL 2 MG/ML VL IV PRN ×4 (00:44→18:45)
[2020-06-12 05:00] VITALS: BP 141/78
[2020-06-12] MEDS: PIPERACILLIN-TAZOB 2.25GM 50 ML IV SCH ×2 (05:11→13:49)
[2020-06-12 07:24] LABS: Calcium 8.6 mg/dL (8.5-10.1); Potassium 3.7 mmol/L (3.5-5.1)
[2020-06-12 09:00] VITALS: BP 121/53
[2020-06-12] MEDS: Ensure HIGH Protein Chocolate 8oz Bottle PO SCH ×3 (09:32→18:13)
[2020-06-12] MEDS: LINEZOLID 600MG/300ML 300 ML IV SCH (09:32)
[2020-06-12] MEDS: SODIUM CHLOR 0.9% PF (SALINE LOCK) 10ML VIAL/SYR IV SCH (09:32)
[2020-06-12 13:00] VITALS: BP 146/87
[2020-06-12 13:29] VITALS: BP 146/87
[2020-06-12 17:00] VITALS: BP 134/68
[2020-06-12] MEDS ORDERED: LINEZOLID 600MG/300ML 300 ML IV ONE (18:00)
== END 2020-06-12 21:10 | disposition home or self-care (01) | DRG 720 ==
LOC: ER 11:58 → TELE 11:59 → TELE-EAST 23:15 → TELE-WESTW 05-23 03:13 → ICU WEST 06-03 15:20 → DOU IN ICU 06-04 00:14 → TELE-WESTW 06-05 22:50
PROVIDERS: ADMIT Hospitalist; ATTEND Internal Medicine
PROC: 0BJ08ZZ Inspection of Tracheobronchial Tree, Via Natural or Artificial Opening Endoscopic (ICD-10-PCS; 2020-05-29)
PROC: 02HV33Z Insertion of Infusion Device into Superior Vena Cava, Percutaneous Approach (ICD-10-PCS; 2020-05-31)
PROC: 0B9J8ZZ Drainage of Left Lower Lung Lobe, Via Natural or Artificial Opening Endoscopic (ICD-10-PCS; 2020-05-31)
PROC: 0W9B00Z Drainage of Left Pleural Cavity with Drainage Device, Open Approach (ICD-10-PCS; 2020-06-03)
PROC: 0BNL0ZZ Release Left Lung, Open Approach (ICD-10-PCS; principal; 2020-06-03 10:12)
PROC: 02HV33Z Insertion of Infusion Device into Superior Vena Cava, Percutaneous Approach (ICD-10-PCS; 2020-06-09)
DX: A41.9 Sepsis, unspecified organism (principal); R65.20 Severe sepsis without septic shock; J86.9 Pyothorax without fistula; E87.1 Hypo-osmolality and hyponatremia; N17.9 Acute kidney failure, unspecified; J98.11 Atelectasis; E87.6 Hypokalemia; N14.1 Nephropathy induced by other drugs, medicaments and biological substances; T36.8X5A Adverse effect of other systemic antibiotics, initial encounter; Z20.828 Contact with and (suspected) exposure to other viral communicable diseases; J91.8 Pleural effusion in other conditions classified elsewhere; D64.9 Anemia, unspecified; E43 Unspecified severe protein-calorie malnutrition; S27.329A Contusion of lung, unspecified, initial encounter; W18.39XA Other fall on same level, initial encounter; Y93.89 Activity, other specified; Y92.89 Other specified places as the place of occurrence of the external cause; Y99.8 Other external cause status; Z68.23 Body mass index [BMI] 23.0-23.9, adult; Z79.899 Other long term (current) drug therapy; J94.8 Other specified pleural conditions; J18.9 Pneumonia, unspecified organism
CPT/HCPCS: 10022; 36415; 36569; 71045; 71250; 76775; 77012; 80048; 80053; 80202; 80307; 81001; 82565; 82570; 83605; 83735; 83986; 84132; 84156; 84300; 84484; 85007; 85025; 85027; 85610; 85730; 86850; 86900; 86901; 87040; 87070; 87081; 87086; 87205; 87426; 89051; 93005; 94640; A4223; A4565; C1729; G0378; J0171; J0690; J0696; J1100; J1885; J2001; J2250; J2405; J2543; J2704; J3480; J3490; J7060